=== PATIENT | female | born 1940 | race Caucasian/White ===

== ENCOUNTER → 2018-04-02 | Outpatient (CLI) | payer MEDICARE, OTHER ==
[~2018-04-02] MED LIST: ASC500 PO; ASCO-182 PO; ASP325 PO; ASPI81TA94 PO; CALC-852 PO; CHOL400T31 PO; CYCL10TA29 PO; FLAX100041 PO; GLUC-135 PO; GLUC100026 PO; LEV75 PO; LEVO75TA73 PO; LOSA50TA67 PO; MULT-1 PO; NYST15CR32 TP; PNEI IJ; PNEU0.5D3 IM; SIMV-49 PO; TELM1TAB20 PO
--- NOTE | 2018-04-02 10:31 | RADIOLOGY IMAGING REPORT ---
FACILITY: [facility] - [place] PATIENT NAME: Carmelina Rosario : 1940 MR: [id number] V: [id number] EXAM DATE: ORDERING PHYSICIAN: SUJEY MCELROY TECHNOLOGIST: Location: Patient: Carmelina Rosario : 1940 Visit/Account:[id number] Date of Sevice: 04/02/2018 DEXA Scan Clinical history: Postmenopausal screening. Comparison: DEXA scan from 05/21/2011. LUMBAR SPINE: The bone mineral density (BMD) measured from L1-L4 correlates with a Z-score of 0.9 and a T-score of -0.2 which is Normal as defined by the World Health Organization. The corresponding risk of fracture in the lumbar spine is Not increased compared with a young adult reference population. This value h as increased by 2.5 % since the prior study. More than 5% change is considered significant. HIP: Bone mineral density (BMD) measured in the LEFT total hip region correlates with a Z-score -0.2 and a T-score of -1.6 which is osteopenia as defined by the World Health Organization. The corresponding risk of fracture in the hip is 3-4 times increased compared to a young adult reference population. Th is value has decrease by 6.1 % since the prior study. More than 5% change is considered significant. T score left femoral neck -1.5 Bone mineral density (BMD) measured in the Femoral Neck region measures 0.833 g/cm?. IMPRESSION: 1. Lumbar spine: Normal. There has been 2.5% increase in the bone mineral density since the previou s exam. 2. Left Total Hip: Osteopenia. There has been 6.1% decrease in the bone mineral density since the p revious exam. 3. Femoral Neck: Bone Mineral Density is 0.833 g/cm? The next DEXA scan of this patient should include the following sites: L1-L4 and the left hip. FRAX? WHO Fracture Risk Assessment Tool link: <http://www.shef.ac.uk/FRAX/tool.jsp?locationValue=9> PLEASE NOTE: 1) The World Health Organization defines low BMD as follows: T-score Normal > -1 Osteopenia < -1 and > -2.5 Osteoporosis < -2.5 without fractures Established osteoporosis < -2.5 with fractures 2) In general, you may wish to consider: Diagnosis Treatment Follow-up DEXA Normal BMD Prevention 2-3 years Osteopenia Prevention/therapy 1-2 years Osteoporosis Therapy Yearly 3) Fracture risk estimated from the T-score is more accurate for vertebral fractures (often spontane ous) than for hip fractures. Report Dictated By: Sarah Ramesh MD at 04/02/2018 10:26 AM Report E-Signed By: Sarah Ramesh MD at 04/02/2018 10:27 AM WSN:[id number]
== END ==
LOC: RAD 00:30
PROVIDERS: ATTEND Internal Medicine
DX: Z13.820 Encounter for screening for osteoporosis (principal); M85.80 Other specified disorders of bone density and structure, unspecified site; Z78.0 Asymptomatic menopausal state
CPT/HCPCS: 77080

== ENCOUNTER 2018-06-17 13:19 | Emergency (ER) | payer MEDICARE, OTHER ==
[2018-06-17] MEDS ORDERED: ACETAMINOPHEN 325 MG TAB PO ONE (13:55)
[2018-06-17] MEDS ORDERED: IBUPROFEN 600 MG TAB PO ONE (13:55)
--- NOTE | 2018-06-17 13:56 | ER Report ---
History and Physical Time Seen By : 13:40 Hx. of Stated Complaint: PT CUT THROUGH THE YARD, TRIPPED AND FELL LANDING ON HER PURSE ON HER RIGHT SIDE. PT COMPLAINING OF RIB PAIN. PT DID NOT HIT HEAD, IS NOT ON BLOOD THINNERS HPI/ROS CHIEF COMPLAINT: Fall, rib pain HISTORY OF PRESENT ILLNESS: 77-year-old female presents after fall at 10:30 this morning she was crossing her yard fell onto her right side and struck her right lower anterior ribs. She initially was able to get up and go inside the pain started radiating towards her back so she presented due to concern of rib injury. She is not short of breath and has very minimal pain on deep breath. She is on no blood thinners but does take aspirin 81 mg daily. She has no abdominal pain, nausea, vomiting, blood in urine. REVIEW OF SYSTEMS: Constitutional: no fever Eyes: no blurred vision ENT: no difficulty breathing Cardiovascular: no chest pain Respiratory: No cough, no shortness of breath. Gastrointestinal: no vomiting Genitourinary: no hematuria Musculoskeletal: as above Skin: No rashes. Neurological: No headache. Remainder of the 14 system rev: Yes Allergies: Coded Allergies: Sulfa (Sulfonamide Antibiotics) (Verified Allergy, Mild, 09/04/06) Home Meds Active Scripts Simvastatin (SIMVASTATIN) 20 Mg Tablet, 1 TAB PO HS, #90 TAB 4 Refills Prov:SUJEY MCELROY MD 03/17/18 Telmisartan/Hydrochlorothiazid (MICARDIS HCT 80-12.5 MG TABLET) 1 Each Tablet, 1 EACH PO DAILY, #90 TAB 4 Refills Prov:SUJEY MCELROY MD 03/17/18 Levothyroxine Sodium (LEVOTHYROXINE SODIUM) 75 Mcg Tablet, 1 TAB PO QDAY, #90 TAB 4 Refills Prov:SUJEY MCELROY MD 03/17/18 NYSTATIN 589695 UNT/ML Topical Cream (NYSTATIN 012667 UNT/ML Topical Cream) 15 Gm Cream..g., 15 GM TP QDAY, #30 GM Prov:SUJEY MCELROY MD 03/17/18 Reported Medications Ascorbic Acid (VITAMIN C) 500 Mg Tablet, 1 TAB PO QDAY, TAB 08/14/17 Flaxseed Oil (FLAX SEED OIL) 1,000 Mg Capsule, 1 CAP PO BID, CAPSULE 08/14/17 Cholecalciferol (Vitamin D3) (VITAMIN D-400) 400 Unit Tablet, 1 TAB PO QDAY 08/14/17 Glucosamine Sulfate 2KCL (GLUCOSAMINE) 1,000 Mg Tablet, 1 TAB PO QDAY 08/14/17 Calcium Carbonate/Vitamin D3 (CALCIUM + VITAMIN D TABLET) 1 Each Tablet, 1 TAB PO BID 11/01/16 Aspirin (ASPIRIN) 81 Mg Tab.chew, 1 TAB PO QDAY, TAB.CHEW 11/01/16 Reviewed Nurses Notes: Yes Smoking Status: Never Smoker Constitutional Vital Sign - Last 24 Hours 06/17/18 13:31 Temp 97.6 Pulse 76 Resp 16 B/P (MAP) 141/58 Pulse Ox 96 O2 Delivery Room Air Physical Exam General Appearance: The patient is alert, has no immediate need for airway protection and no signs of toxicity. Eyes: Pupils equal and round no pallor or injection. ENT, Mouth: Mucous membranes are moist. Respiratory: There are no retractions, lungs are clear to auscultation. Cardiovascular: Regular rate and rhythm. Gastrointestinal: Abdomen is soft and non tender, no masses Neurological: alert, moves all ext Skin: Warm and dry, no rashes. Musculoskeletal: no spine, post thoracic ttp. lower ant thoracic ttp approx t10-12 without crepitance or stepoff. DIFFERENTIAL DIAGNOSIS: After history and physical exam differential diagnosis was considered for pneumothorax, rib fracture, abd injury Medical Decision Making ED Course/Re-evaluation ED Course 77-year-old female presents with fall and right thoracic pain. She has minimal dyspnea, however given age will x-ray to rule out pneumothorax. We'll treat supportively. Decision to Disposition Date: Jun 17, 2018 Decision to Disposition Time: 14:22 Depart Departure Latest Vital Signs Vital Signs Date Time Temp Pulse Resp B/P (MAP) Pulse Ox O2 Delivery O2 Flow Rate FiO2 06/17/18 13:31 97.6 76 16 141/58 96 Room Air Impression: Primary Impression: Rib injury Condition: Improved Disposition: HOME OR SELF-CARE Referrals: SUJEY MCELROY MD (PCP) 5 Days Additional Instructions: As we discussed, you may take ibuprofen 400 mg every 8 hours for pain. However, I recommend you stop this by Saturday as you have surgery next Saturday. You may also take Tylenol 650 mg every 6 hours for pain. I also recommend you use ice, heat or whatever is most helpful. Please use the incentive spirometer as we discussed to help keep your lungs working well. HOMA YU MD Jun 17, 2018 13:56
--- NOTE | 2018-06-17 14:28 | RADIOLOGY IMAGING REPORT ---
FACILITY: [facility] - [place] PATIENT NAME: Carmelina Rosario : 1940 MR: [id number] V: [id number] EXAM DATE: ORDERING PHYSICIAN: HMOA YU TECHNOLOGIST: Location: [facility] - [place] Patient: Carmelina Rosario : 1940 Visit/Account:[id number] Date of Sevice: 06/17/2018 2 VIEWS CHEST INDICATION: Right-sided pain after fall with radiation to the back. COMPARISON: None available FINDINGS: Cardiomediastinal silhouette and pulmonary vessels within normal limits. There is no focal infiltrate or lobar consolidation. There is no pneumothorax or pleural effusion. No nodule. Upper abdomen is unremarkable. No acute bony abnormality. No discrete rib fracture or vertebral body compression. IMPRESSION: 1. No acute cardiopulmonary process. No indication of traumatic injury. Report Dictated By: Ezequiel Flores at 06/17/2018 2:21 PM Report E-Signed By: Ezequiel Flores at 06/17/2018 2:23 PM WSN:[id number]
[2018-06-17 14:30] VITALS: BP 117/50
== END 2018-06-17 14:38 | disposition home or self-care (01) ==
LOC: ER 13:36
DX: R07.81 Pleurodynia (principal)
CPT/HCPCS: 71046; 99283; A9270

== ENCOUNTER 2018-06-27 03:33 | Day surgery (SDC) | payer MEDICARE, OTHER ==
[~2018-06-27] VITALS: Ht 167.6 cm; Wt 84.4 kg
[2018-06-27 13:23] VITALS: BP 143/65
[2018-06-27] MEDS ORDERED: OPHTHALMIC PROCEDURE 1 OD PRN (13:30)
[2018-06-27] MEDS ORDERED: NORMOSOL R SOLN(*) 1000 ML BAG 1,000 ML IV PRN (13:30)
[2018-06-27] MEDS ORDERED: LIDOCAINE/SOD BICARB 8.4% SYR ID ONE (13:30)
[2018-06-27] MEDS ORDERED: OPHTHALMIC PROCEDURE 2 OD PRN ×2 (13:30)
[2018-06-27 14:39] VITALS: BP 120/61
--- NOTE | 2018-06-27 17:36 | FOSTER RIGHT EYE CATARACT ---
EVENT DATE: June 27, 2018 SURGEON: Stan Catalan MD ANESTHESIOLOGIST: Erik Mahoney MD ANESTHESIA: MAC PREOPERATIVE DIAGNOSIS Cataract, right eye. POSTOPERATIVE DIAGNOSIS Cataract, right eye. PROCEDURE Phacoemulsification of cataractous lens with implantation of an intraocular lens, right eye. DESCRIPTION OF PROCEDURE The risks, benefits, and alternatives were carefully discussed with the patient, and preoperative consent was obtained. The patient was brought to the operating room after receiving topical anesthetic. The patient was prepped and draped using sterile technique in the usual manner. A stab incision was made, and the chamber was inflated with preservative-free lidocaine. DuoVisc was injected to inflate the chamber. A 2.2 mm blade was used to enter the anterior chamber. Utrata forceps were used to tear a circular capsulorrhexis. BSS was used to hydrodissect the nucleus. Phaco tip was introduced, and the nucleus was chopped into four quadrants. Each quadrant was removed. The I/A tip was used to remove the cortex. The bag was inflated with ProVisc. The intraocular lens was injected into the capsular bag. The I/A tip was used to remove the ProVisc. The wound was found to be watertight. Vigamox, Nevanac, and Maxitrol ointment were placed in the patient's eye. The patient's eye was patched, and the patient was taken to the recovery room in stable condition. The patient was examined in the recovery room and found to be stable prior to release from the hospital. JONAH
== END 2018-06-27 15:40 | disposition home or self-care (01) ==
LOC: OR 03:33
PROVIDERS: ATTEND Ophthalmology
DX: H25.11 Age-related nuclear cataract, right eye (principal)
CPT/HCPCS: 66984; V2632